=== PATIENT | female | born 1990 | race Caucasian/White ===

== ENCOUNTER 2018-09-04 18:15 | Emergency (ER) | payer OTHER ==
[~2018-09-04] VITALS: Ht 165.1 cm; Wt 81.6 kg
[~2018-09-04 18:15] MED LIST: CATAFLAM50 MG PO; DEPO-PROVER150 MG/M1 IM; HYDROCODONE BIT1 T11 PO; MOTRIN800 MG PO; NKHM; VICODIN ES 7501 TAB PO; VITAMINS & MINE1 TAB PO; ZOLOFT100 MG PO
[2018-09-04 18:50] LABS: BASO % 0.3 % (0.0-1.0); EOS # 0.1 10*3/uL (0.0-0.4); EOS % 1.1 % (1.0-4.0); HEMATOCRIT 43.3 % (37.0-47.0); HEMOGLOBIN 14.2 g/dl (12.0-16.0); LYMPH # 1.1 10*3/uL (1.3-4.4); LYMPH % 11.1 % (27.0-41.0); MEAN CELL VOLUME 84.2 fl (81.0-99.0); MEAN CORPUSCULAR HGB 27.6 pg (27.0-31.0); MEAN CORPUSCULAR HGB CONC 32.8 g/dl (33.0-37.0); MEAN PLATELET VOLUME 9.8 fl (9.6-12.3); MONO # 0.3 10*3/uL (0.1-1.0); MONO % 2.9 % (3.0-9.0); NEUT # 8.6 10*3/uL (2.3-7.9); NEUT % 84.2 % (47.0-73.0); PLATELET COUNT AUTOMATED 276 10*3/uL (130-400); RED BLOOD COUNT 5.14 10*6/uL (4.10-5.10); RED CELL DISTRI WIDTH 13.8 % (0-14.5); WHITE BLOOD COUNT 10.2 10*3/uL (4.8-10.8)
[2018-09-04 19:05] LABS: ALBUMIN 3.7 gm/dl (3.1-4.5); ALKALINE PHOSPHATASE 72 U/L (45-117); BUN 11 mg/dl (7-24); CHLORIDE 106 mmol/L (98-107); CREATININE 0.73 mg/dL (0.55-1.02); POTASSIUM 4.1 mmol/L (3.5-5.1); SGOT/AST 26 IU/L (3-35); SGPT/ALT 56 U/L (12-78); SODIUM 140 mmol/L (136-145); TOTAL PROTEIN 7.7 gm/dL (6.4-8.2)
[2018-09-04] MEDS ORDERED: ZOFRAN4 MG PO (19:30)
[2018-09-04 20:14] LABS: BILIRUBIN NEGATIVE (NEGATIVE); BLOOD NEGATIVE (NEGATIVE); CLARITY SL CLOUDY (CLEAR); COLOR YELLOW (YELLOW); GLUCOSE NEGATIVE (NEGATIVE); KETONE TRACE (NEGATIVE); LEUKO ESTERASE NEGATIVE (NEGATIVE); NITRITE NEGATIVE (NEGATIVE); SPECIFIC GRAVITY 1.015 (1.005-1.030); UROBILINOGEN 0.2 E.U./dl (0.2-1.0)
[2018-09-04 20:23] LABS: BACTERIA 1+; MUCOUS TRACE; RBC 0-2 rbc/hpf (0-2); WBC 0-2 wbc/hpf (0-5)
[2018-09-04 20:32] VITALS: BP 107/56
== END 2018-09-04 20:39 | disposition home or self-care (01) ==
LOC: ED 18:15
PROVIDERS: Nurse Practitioner Family
DX: B27.90 Infectious mononucleosis, unspecified without complication (principal); R11.2 Nausea with vomiting, unspecified; R19.7 Diarrhea, unspecified; R50.9 Fever, unspecified; R09.89 Other specified symptoms and signs involving the circulatory and respiratory systems; R06.7 Sneezing; R52 Pain, unspecified

== ENCOUNTER 2024-04-08 22:15 | Emergency (ER) | payer SELFPAY ==
[~2024-04-08] VITALS: Ht 165.1 cm; Wt 76.0 kg
[~2024-04-08 22:15] MED LIST changes: +ZOFRAN4 MG PO
[2024-04-08 22:16] VITALS: BP 127/55
[2024-04-08] MEDS ORDERED: Ondansetron Hydrochloride 4 MG/2 ML VIAL IV ONE (22:30)
[2024-04-08] MEDS ORDERED: SODIUM CHLORIDE 0.9% 1,000 ML IV ONE (22:30)
[2024-04-08] MEDS ORDERED: LORazepam 2 MG/ML VIAL IV ONE ×2 (22:30→23:20)
[2024-04-08 22:40] LABS: BASO # 0.1 10*3/uL (0.0-0.1); BASO % 0.6 % (0.0-1.0); EOS # 0.2 10*3/uL (0.0-0.4); EOS % 2.1 % (1.0-4.0); HEMATOCRIT 39.7 % (37.0-47.0); LYMPH # 2.5 10*3/uL (1.3-4.4); MEAN CELL VOLUME 84.8 fl (81.0-99.0); MEAN CORPUSCULAR HGB 28.4 pg (27.0-31.0); MEAN CORPUSCULAR HGB CONC 33.5 g/dl (33.0-37.0); MEAN PLATELET VOLUME 10.2 fl (9.6-12.3); MONO # 0.5 10*3/uL (0.1-1.0); MONO % 6.6 % (3.0-9.0); NEUT % 60.6 % (47.0-73.0); PLATELET COUNT AUTOMATED 235 10*3/uL (130-400); RED BLOOD COUNT 4.68 10*6/uL (4.10-5.10); RED CELL DISTRI WIDTH 13.9 % (0-14.5); WHITE BLOOD COUNT 8.2 10*3/uL (4.8-10.8)
[2024-04-08 23:02] LABS: ALKALINE PHOSPHATASE 35 U/L (46-116); BUN 11 mg/dl (9-23); CHLORIDE 107 mmol/L (98-107); POTASSIUM 3.6 mmol/L (3.4-5.1); SGPT/ALT 16 U/L (5-49); TOTAL PROTEIN 6.9 gm/dL (6.0-8.0)
[2024-04-08] MEDS ORDERED: ACETAMINOPHEN 325 MG TAB PO ONE (23:50)
== END 2024-04-09 00:31 | disposition home or self-care (01) ==
LOC: ED 22:15
PROVIDERS: Internal Medicine
DX: R55 Syncope and collapse (principal); F41.9 Anxiety disorder, unspecified; E86.0 Dehydration; J45.909 Unspecified asthma, uncomplicated; Z88.0 Allergy status to penicillin; Z88.1 Allergy status to other antibiotic agents; Z91.041 Radiographic dye allergy status; Z87.891 Personal history of nicotine dependence

== ENCOUNTER → 2025-02-16 | Outpatient (CLI) | payer OTHER | END | disposition home or self-care (01) | LOC: LAB 11:20 | PROVIDERS: ATTEND Internal Medicine Nephrology | DX: N91.0 Primary amenorrhea (principal) ==

== ENCOUNTER 2025-03-31 20:13 | Emergency (ER) | payer OTHER ==
[~2025-03-31] VITALS: Ht 162.5 cm; Wt 69.9 kg
[2025-03-31 20:28] VITALS: BP 147/60
[2025-03-31] MEDS ORDERED: Bacitracin Zinc 14 GM TUBE T ONE (20:40)
[2025-03-31] MEDS ORDERED: Acetaminophen/Hydrocodone 5 MG/325 MG TABLET PO ONE (20:40)
== END 2025-03-31 20:55 | disposition home or self-care (01) ==
LOC: ED 20:13
DX: T25.222A Burn of second degree of left foot, initial encounter (principal); F41.9 Anxiety disorder, unspecified; Z88.1 Allergy status to other antibiotic agents; Z88.0 Allergy status to penicillin; Z91.041 Radiographic dye allergy status; X12.XXXA Contact with other hot fluids, initial encounter; Y93.89 Activity, other specified; Y92.89 Other specified places as the place of occurrence of the external cause; Y99.8 Other external cause status